=== PATIENT | female | born 1970 | race Caucasian/White ===

== ENCOUNTER → 2021-10-18 | Outpatient (CLI) | payer MEDICARE ==
[~2021-10-18] MED LIST: BUPR150T2 PO; ESZO2 PO; GABA100 PO; LORA.5 PO; LORA1 PO; LORA2 PO; METO25ER PO; METO50ER PO; NITR100CA PO
== END ==
LOC: LAB SHORT 18:12
DX: R30.0 Dysuria (principal); R30.9 Painful micturition, unspecified
CPT/HCPCS: 87086

== ENCOUNTER → 2022-04-13 | Outpatient (CLI) | payer MEDICARE | END | disposition home or self-care (01) | LOC: LAB 13:15 → LAB SHORT 13:15 | DX: R30.0 Dysuria (principal) | CPT/HCPCS: 87086 ==